=== PATIENT | male | born 1940 | race Two or more races ===

== ENCOUNTER 2021-09-03 20:53 | Emergency (ER) | payer MEDICAID, OTHER ==
[~2021-09-03] VITALS: Ht 165.1 cm; Wt 55.3 kg
[2021-09-03] MEDS ORDERED: hydrOXYzine 25 MG TAB or CAP PO ONE (23:45)
[2021-09-04] MEDS ORDERED: methylPREDNISolone SOD SUCC 125 MG/2 ML VL IV ONE (08:00)
[2021-09-04] MEDS ORDERED: PANTOPRAZOLE 40 MG/10 ML VIAL INJ IV ONE (08:00)
[2021-09-04] MEDS ORDERED: SODIUM CHLORIDE 0.9% 500 ML IV ONE (08:00)
[2021-09-04] MEDS ORDERED: SODIUM CHLORIDE 0.9% 1,000 ML IV ONE (08:00)
[2021-09-04] MEDS ORDERED: diphenhdrAMINE HCL 50 MG/1 ML VL IV ONE (08:00)
[2021-09-04 08:56] LABS: Basophils # (auto) 0 10 ^3/uL (0-0.2); Basophils % (auto) 0.1 % (0.0-2.0); Eosinophils # (auto) 0 10 ^3/uL (0-0.8); Eosinophils % (auto) 0.1 % (0.0-7.0); Hematocrit 40.8 % (41.0-53.0); Lymphocytes # (auto) 1.6 10 ^3/uL (0.4-5.4); Mean Corpuscular Hemoglobin 28.4 pg (28.0-32.0); Mean Corpuscular Hgb Conc. 34.3 g/dL (32.0-36.0); Mean Corpuscular Volume 82.9 fL (80.0-100.0); Monocytes # (auto) 0.5 10 ^3/uL (0-1.3); Monocytes % (auto) 4.1 % (0.0-12.0); Neutrophils % (auto) 82.7 % (37.0-80.0); Nucleated Red Blood Cells % 0.1 %; Red Blood Cells 4.92 10^6/uL (4.5-5.90); White Blood Cell 12.1 10^3/uL (4.4-10.8)
[2021-09-04 09:00] VITALS: BP 104/60
[2021-09-04 10:06] LABS: Albumin 3.2 g/dL (3.4-5.0); Calcium 9.1 mg/dL (8.5-10.1); Magnesium 2.8 mg/dL (1.6-2.6); Potassium 4.6 mmol/L (3.5-5.1)
[2021-09-04 10:11] LABS: Bilirubin, Total 0.5 mg/dL (0.2-1.0); Total Protein 7.4 g/dL (6.4-8.2)
[2021-09-04] MEDS ORDERED: PRED20TA2 PO (12:40)
[2021-09-04] MEDS ORDERED: FAMO20TA10 PO (12:40)
[2021-09-04] MEDS ORDERED: DIPH25CA66 PO (12:40)
[2021-09-04] MEDS ORDERED: APIX5TAB PO (12:43)
[2021-09-04] MEDS ORDERED: METF-371 PO (12:43)
[2021-09-04] MEDS ORDERED: LOSA-39 PO (12:43)
== END 2021-09-04 13:08 | disposition home or self-care (01) ==
LOC: ER 20:53
DX: L50.8 Other urticaria (principal); E11.21 Type 2 diabetes mellitus with diabetic nephropathy; E46 Unspecified protein-calorie malnutrition; I11.0 Hypertensive heart disease with heart failure; I50.9 Heart failure, unspecified; E78.5 Hyperlipidemia, unspecified; Z68.20 Body mass index [BMI] 20.0-20.9, adult
CPT/HCPCS: 36415; 71045; 80053; 83735; 85025; 93005; 96361; 96374; 96375; 99285; C9113; J1200; J2930; J7040

== ENCOUNTER 2021-09-09 00:15 | Emergency (ER) | payer MEDICAID ==
[~2021-09-09] VITALS: Ht 165.1 cm; Wt 81.6 kg
[~2021-09-09 00:15] MED LIST: APIX5TAB PO; DIPH25CA66 PO; FAMO20TA10 PO; LOSA-39 PO; METF-371 PO; PRED20TA2 PO
[2021-09-09] MEDS ORDERED: CALCIUM CHLOR(10%) 100MG/ML 10ML SYRINGE IV ONE (00:16)
[2021-09-09] MEDS ORDERED: AMIODARONE HCL (50 MG/ ML) 3 ML VIAL IV ONE (00:16)
[2021-09-09] MEDS ORDERED: SODIUM BICARBONATE 8.4% INJ 50ML SYRINGE IV ONE (00:16)
[2021-09-09] MEDS ORDERED: ATROPINE SULF 1 MG/10ml SYR IM ONE (00:16)
[2021-09-09] MEDS ORDERED: EPINEPHrine HCL 1 MG/10 ML SYRG IV ONE (00:16)
[2021-09-09] MEDS ORDERED: AMIODARONE 450mg/250ml AE 250 ML IV ONE (00:37)
[2021-09-09] MEDS ORDERED: GLUCAGON HYDROCHLORIDE (RDNA) 1 MG VIAL ONE (00:37)
[2021-09-09] MEDS ORDERED: DOBUTamine 1000MCG/ML 250 ML IV ONE (00:40)
[2021-09-09] MEDS ORDERED: AMIODARONE HCL 150 MG in D5W 5% 100 ML IV ONE (00:45)
[2021-09-09] MEDS ORDERED: GLUCAGON HYDROCHLORIDE (RDNA) 1 MG VIAL IV ONE (00:45)
[2021-09-09] MEDS ORDERED: AMIODARONE 450mg/250ml AE 250 ML IV SCH ×2 (00:45→06:45)
== END 2021-09-09 00:53 ==
LOC: EDBD 00:15 → ER 00:15 → EDSEX 00:15 → ER 00:53
DX: I46.9 Cardiac arrest, cause unspecified (principal); I11.0 Hypertensive heart disease with heart failure; I50.9 Heart failure, unspecified; E11.9 Type 2 diabetes mellitus without complications; E78.5 Hyperlipidemia, unspecified
CPT/HCPCS: 36556; 92950; 99291; J0171; J0282; J1250; J1610; J7060